=== PATIENT | female | born 1995 | race Caucasian/White ===

== ENCOUNTER 2016-09-12 18:46 | Emergency (ER) | payer BC ==
[2016-09-12] MEDS ORDERED: Sodium Chloride 0.9% 10 ML Syringe FLUSH PRN (19:07)
[2016-09-12] MEDS ORDERED: Sodium Chloride 0.9% 1,000 ML IV ONE ×2 (19:07→21:04)
[2016-09-12] MEDS ORDERED: Ketorolac 30 MG/ML SDV IVPUSH ONE (19:09)
[2016-09-12] MEDS ORDERED: Ondansetron 4 MG/2 ML SDV IVPUSH ONE (19:14)
[2016-09-12] MEDS ORDERED: Famotidine 20 MG/2 ML SDV IVPUSH ONE (19:14)
[2016-09-12] MEDS ORDERED: Pantoprazole 40 MG Vial IVPUSH ONE (19:15)
[2016-09-12] MEDS ORDERED: Iopamidol 612 MG/ML 100 ML Bottle IVPUSH ONE (19:48)
--- NOTE | 2016-09-12 19:49 | EDM.PDOC ---
ED HPI GENERAL MEDICAL PROBLEM - General Chief Complaint: Gastrointestinal Problem Stated Complaint: Severe Nausea; Vomiting Time Seen by Provider: 09/12/16 18:59 Source of Information: Reports: Patient, Family, RN, RN Notes Reviewed History Limitations: Reports: No Limitations - History of Present Illness INITIAL COMMENTS - FREE TEXT/NARRATIVE: Patient presents to the emergency room at [facility] complaining of severe nausea, vomiting, abdominal pain. The patient states her symptoms began a couple of hours ago. The patient states that her symptoms began after she ate soup from a fast food restaurant. No previous history of any abdominal problems. The patient states that she feels chilled. Patient is requesting Dilaudid for her pain. Patient denies any chest pain. Patient denies any shortness of breath. The patient denies any diarrhea. No recent abdominal surgeries. No recent abdominal injury or trauma. The patient denies any focal neurological deficits. The patient denies any fevers. Onset: Today Onset Date: 09/12/16 Onset Time: 17:00 Duration: Constant, Getting Worse Location: Reports: Abdomen Quality: Reports: Sharp, Stabbing, Throbbing Severity: Severe Improves with: Reports: None Worsens with: Reports: Eating Context: Denies: Activity, Exercise, Lifting, Sick Contact, Trauma Associated Symptoms: Reports: Nausea/Vomiting Treatments [employer]: Reports: Other (see below) (None) Middle Epigastric Pain Score (Numeric/FACES): 10 - Related Data Allergies Allergy/AdvReac Type Severity Reaction Status Date / Time No Known Allergies Allergy Verified 09/12/16 18:55 Home Meds: Home Meds . [No Known Home Meds] 09/12/16 [History] Past Medical History - Past Surgical History GI Surgical History: Reports: Cholecystectomy Female Surgical History: Reports: Breast Reduction Social & Family History - Family History Family Medical History: Noncontributory - Tobacco Use Smoking Status *Q: Current Every Day Smoker Years of Tobacco use: 6 Packs/Tins Daily: 1 - Alcohol Use Days Per Week of Alcohol Use: 0 - Recreational Drug Use Recreational Drug Use: Yes Drug Use in Last 12 Months: Yes Recreational Drug Type: Reports: Marijuana/Hashish Recreational Drug Use Frequency: Socially ED ROS GENERAL - Review of Systems Review Of Systems: See Below Constitutional: Denies: Fever, Chills, Weakness Respiratory: Denies: Shortness of Breath, Cough Cardiovascular: Denies: Chest Pain, Palpitations GI/Abdominal: Reports: Abdominal Pain, Nausea, Vomiting. Denies: Bloody Stool, Constipation, Diarrhea Skin: Reports: No Symptoms Neurological: Reports: No Symptoms ED EXAM, GI/ABD - Physical Exam Exam: See Below Exam Limited By: No Limitations General Appearance: Alert, Mild Distress, Thin Respiratory/Chest: No Respiratory Distress, Lungs Clear, Normal Breath Sounds Cardiovascular: Regular Rate, Rhythm GI/Abdominal: Hypoactive Bowel Sounds, Tenderness, Guarding, Rebound, Rigidity Extremities: Normal Inspection Neurological: Alert, Oriented Skin Exam: Warm, Dry, Intact, Normal Color, No Rash Course - Vital Signs Last Recorded V/S: Last Vital Signs Temp 35.5 C 09/12/16 18:48 Pulse 101 H 09/12/16 18:48 Resp 20 09/12/16 18:48 BP 120/85 09/12/16 18:48 Pulse Ox - Orders/Labs/Meds Orders: Active Orders 24 hr Category Date Time Status Abdomen Pelvis w Cont [CT] Stat Exams 09/12/16 19:05 Taken CARBOXY-THC BY GC/MS Stat Lab 09/12/16 20:11 Received Sodium Chloride 0.9% [Normal Saline] 1,000 ml Med 09/12/16 21:04 Active IV ONETIME Sodium Chloride 0.9% [Normal Saline] 100 ml Med 09/12/16 20:00 Active IV ASDIRECTED Sodium Chloride 0.9% [Saline Flush] Med 09/12/16 19:07 Active 10 ml FLUSH ASDIRECTED PRN Peripheral IV Insertion Adult [OM.PC] Routine Oth 09/12/16 19:07 Ordered Medication Orders Sodium Chloride (Normal Saline) 100 mls @ 3 mls/sec IV ASDIRECTED CHENTE Last Admin: 09/12/16 20:50 Dose: 3 mls/sec Sodium Chloride (Normal Saline) 1,000 mls @ 999 mls/hr IV ONETIME ONE Stop: 09/12/16 22:04 Last Admin: 09/12/16 19:55 Dose: 999 mls/hr Sodium Chloride (Saline Flush) 10 ml FLUSH ASDIRECTED PRN PRN Reason: Keep Vein Open Labs: Laboratory Tests 09/12/16 09/12/16 09/12/16 Range/Units 19:31 19:31 19:31 WBC 16.1 H (4.0-10.0) x10^3/uL RBC 4.27 (4.00-5.50) x10^6/uL Hgb 13.9 (12.0-16.0) g/dL Hct 39.7 (33.0-47.0) % MCV 93.0 (78.0-93.0) fL MCH 32.6 H (26.0-32.0) pg MCHC 35.0 (32.0-36.0) g/dL RDW Coeff of Cricket 11.6 (10.0-15.0) % Plt Count 283 (130-400) x10^3/uL Neut % (Auto) 85.9 H (50.0-80.0) % Lymph % (Auto) 9.6 L (25.0-50.0) % [place] % (Auto) 4.1 (2.0-11.0) % Eos % (Auto) 0.2 (0.0-4.0) % Baso % (Auto) 0.2 (0.2-1.2) % Sodium 141 (136-145) mmol/L Potassium 3.0 L (3.5-5.1) mmol/L Chloride 102 (98-107) mmol/L Carbon Dioxide 24 (21-32) mmol/L BUN 10 (7-18) mg/dL Creatinine 0.9 (0.55-1.02) mg/dL Est Cr Clr Drug Dosing 73.72 mL/min Estimated GFR (MDRD) > 60 Glucose 152 H (74-106) mg/dL Lactic Acid 3.3 H (0.4-2.0) mmol/L Calcium 9.6 (8.5-10.1) mg/dL Corrected Calcium 9.28 (8.5-10.1) mg/dL Total Bilirubin 0.5 (0.2-1.0) mg/dL AST 17 (15-37) U/L ALT 23 (14-59) U/L Alkaline Phosphatase 67 (46-116) U/L C-Reactive Protein < 0.2 (<=0.9) mg/dL Total Protein 8.0 (6.4-8.2) g/dL Albumin 4.4 (3.4-5.0) g/dL Globulin 3.6 Albumin/Globulin Ratio 1.22 Amylase 54 (25-115) U/L Lipase 99 (73-393) U/L Urine Color (YELLOW) Urine Appearance (CLEAR) Urine pH (5.0-8.0) Ur Specific Oscar Urine Protein (NEGATIVE) mg/dL Urine Glucose (UA) (NEGATIVE) mg/dL Urine Ketones (NEGATIVE) mg/dL Urine Occult Blood (NEGATIVE) Urine Nitrite (NEGATIVE) Urine Bilirubin (NEGATIVE) Urine Urobilinogen (0.2) EU/dL Ur Leukocyte Esterase (NEGATIVE) Urine RBC (NOT SEEN) /HPF Urine WBC (NOT SEEN) /HPF Ur Squamous Epith Cells (NEGATIVE) /HPF Urine Bacteria (NEGATIVE) /HPF Urine Mucus (NEGATIVE) /LPF Urine HCG, Qual (NEGATIVE) Urine Opiates Screen (NEGATIVE) Ur Buprenorphine Scrn (NEGATIVE) Ur Oxycodone Screen (NEGATIVE) Urine Methadone Screen (NEGATIVE) Ur Barbiturates Screen (NEGATIVE) Ur Tricyclics Screen (NEGATIVE) Ur Amphetamine Screen (NEGATIVE) U Methamphetamines Scrn (NEGATIVE) Urine MDMA Screen (NEGATIVE) U Benzodiazepines Scrn (NEGATIVE) U Cocaine Metab Screen (NEGATIVE) U Marijuana (THC) Screen (NEGATIVE) 09/12/16 09/12/16 09/12/16 Range/Units 20:11 20:11 20:17 WBC (4.0-10.0) x10^3/uL RBC (4.00-5.50) x10^6/uL Hgb (12.0-16.0) g/dL Hct (33.0-47.0) % MCV (78.0-93.0) fL MCH (26.0-32.0) pg MCHC (32.0-36.0) g/dL RDW Coeff of Cricket (10.0-15.0) % Plt Count (130-400) x10^3/uL Neut % (Auto) (50.0-80.0) % Lymph % (Auto) (25.0-50.0) % [place] % (Auto) (2.0-11.0) % Eos % (Auto) (0.0-4.0) % Baso % (Auto) (0.2-1.2) % Sodium (136-145) mmol/L Potassium (3.5-5.1) mmol/L Chloride (98-107) mmol/L Carbon Dioxide (21-32) mmol/L BUN (7-18) mg/dL Creatinine (0.55-1.02) mg/dL Est Cr Clr Drug Dosing mL/min Estimated GFR (MDRD) Glucose (74-106) mg/dL Lactic Acid (0.4-2.0) mmol/L Calcium (8.5-10.1) mg/dL Corrected Calcium (8.5-10.1) mg/dL Total Bilirubin (0.2-1.0) mg/dL AST (15-37) U/L ALT (14-59) U/L Alkaline Phosphatase (46-116) U/L C-Reactive Protein (<=0.9) mg/dL Total Protein (6.4-8.2) g/dL Albumin (3.4-5.0) g/dL Globulin Albumin/Globulin Ratio Amylase (25-115) U/L Lipase (73-393) U/L Urine Color Yellow (YELLOW) Urine Appearance Slightly cloudy H (CLEAR) Urine pH 8.5 H (5.0-8.0) Ur Specific Oscar 1.020 Urine Protein Trace H (NEGATIVE) mg/dL Urine Glucose (UA) Negative (NEGATIVE) mg/dL Urine Ketones 80 H (NEGATIVE) mg/dL Urine Occult Blood Negative (NEGATIVE) Urine Nitrite Negative (NEGATIVE) Urine Bilirubin Negative (NEGATIVE) Urine Urobilinogen 0.2 (0.2) EU/dL Ur Leukocyte Esterase Negative (NEGATIVE) Urine RBC 0-5 (NOT SEEN) /HPF Urine WBC 0-5 (NOT SEEN) /HPF Ur Squamous Epith Cells Many H (NEGATIVE) /HPF Urine Bacteria Not seen (NEGATIVE) /HPF Urine Mucus Not seen (NEGATIVE) /LPF Urine HCG, Qual Negative (NEGATIVE) Urine Opiates Screen Negative (NEGATIVE) Ur Buprenorphine Scrn Negative (NEGATIVE) Ur Oxycodone Screen Negative (NEGATIVE) Urine Methadone Screen Negative (NEGATIVE) Ur Barbiturates Screen Negative (NEGATIVE) Ur Tricyclics Screen Negative (NEGATIVE) Ur Amphetamine Screen Negative (NEGATIVE) U Methamphetamines Scrn Negative (NEGATIVE) Urine MDMA Screen Negative (NEGATIVE) U Benzodiazepines Scrn Negative (NEGATIVE) U Cocaine Metab Screen Negative (NEGATIVE) U Marijuana (THC) Screen Positive H (NEGATIVE) Meds: Medications Generic Name Dose Route Start Last Admin Trade Name Freq PRN Reason Stop Dose Admin Sodium Chloride 100 mls @ 3 mls/sec 09/12/16 20:00 09/12/16 20:50 Normal Saline IV 3 mls/sec ASDIRECTED CHENTE Administration Sodium Chloride 1,000 mls @ 999 mls/hr 09/12/16 21:04 09/12/16 19:55 Normal Saline IV 09/12/16 22:04 999 mls/hr ONETIME ONE Administration Sodium Chloride 10 ml 09/12/16 19:07 Saline Flush FLUSH ASDIRECTED PRN Keep Vein Open Discontinued Medications Generic Name Dose Route Start Last Admin Trade Name Freq PRN Reason Stop Dose Admin Chlorpromazine HCl 50 mg 09/12/16 20:37 Thorazine IM 09/12/16 20:38 ONETIME ONE Famotidine 20 mg 09/12/16 19:14 09/12/16 19:44 Pepcid IVPUSH 09/12/16 19:15 20 mg ONETIME ONE Administration Sodium Chloride 1,000 mls @ 999 mls/hr 09/12/16 19:07 09/12/16 19:20 Normal Saline IV 09/12/16 20:07 999 mls/hr ONETIME ONE Administration Iopamidol 100 ml 09/12/16 19:48 09/12/16 20:45 Isovue-300 (61%) IVPUSH 09/12/16 19:49 100 ml ONETIME ONE Administration Ketorolac Tromethamine 30 mg 09/12/16 19:09 09/12/16 19:38 Toradol IVPUSH 09/12/16 19:10 30 mg ONETIME ONE Administration Nitrofurantoin Macrocrystals 100 mg 09/12/16 21:14 Macrodantin PO 09/12/16 21:15 ONETIME ONE Ondansetron HCl 4 mg 09/12/16 19:14 09/12/16 19:30 Zofran IVPUSH 09/12/16 19:15 4 mg ONETIME ONE Administration Pantoprazole Sodium 40 mg 09/12/16 19:15 09/12/16 19:34 Protonix Iv IVPUSH 09/12/16 19:16 40 mg ONETIME ONE Administration - Radiology Interpretation Free Text/Narrative:: Awaiting CT Abd/Pelvis results, patient no longer wants to wait and wishes to go home. Advised we will call when results are available Departure - Departure Time of Disposition: 21:56 Disposition: Home, Self-Care 01 Condition: good Clinical Impression: Chronic epigastric pain - Discharge Information Instructions: Abdominal Pain, Adult, [id number] Referrals: PCP,None [Primary Care Provider] - Forms: ED Department Discharge Additional Instructions: 1. Stay well hydrated and rest 2. Avoid greasy/fatty foods; eat a bland diet 3. Avoid carbonated beverages 4. Make an appointment to see your Primary care provider this week for a follow up - Problem List Review Problem List Initiated/Reviewed/Updated: Yes - My Orders Last 24 Hours: My Active Orders 09/12/16 19:05 Abdomen Pelvis w Cont [CT] Stat 09/12/16 19:07 Sodium Chloride 0.9% [Saline Flush] 10 ml FLUSH ASDIRECTED PRN Peripheral IV Insertion Adult [OM.PC] Routine 09/12/16 20:00 Sodium Chloride 0.9% [Normal Saline] 100 ml IV ASDIRECTED 09/12/16 20:11 CARBOXY-THC BY GC/MS Stat 09/12/16 21:04 Sodium Chloride 0.9% [Normal Saline] 1,000 ml IV ONETIME - Assessment/Plan Last 24 Hours: My Active Orders 09/12/16 19:05 Abdomen Pelvis w Cont [CT] Stat 09/12/16 19:07 Sodium Chloride 0.9% [Saline Flush] 10 ml FLUSH ASDIRECTED PRN Peripheral IV Insertion Adult [OM.PC] Routine 09/12/16 20:00 Sodium Chloride 0.9% [Normal Saline] 100 ml IV ASDIRECTED 09/12/16 20:11 CARBOXY-THC BY GC/MS Stat 09/12/16 21:04 Sodium Chloride 0.9% [Normal Saline] 1,000 ml IV ONETIME
[2016-09-12 19:58] LABS: CHLORIDE,CL 102 mmol/L (98-107); SODIUM,NA 141 mmol/L (136-145)
[2016-09-12] MEDS ORDERED: Sodium Chloride 0.9% 100 ML IV SCH (20:00)
[2016-09-12] MEDS ORDERED: Nitrofurantoin Macrocrystal 50 MG Cap PO ONE (21:14)
[2016-09-12 22:49] VITALS: BP 106/61
== END 2016-09-12 22:11 | disposition home or self-care (01) ==
LOC: VM.ED 18:46
DX: R10.13 Epigastric pain (principal); G89.29 Other chronic pain; Z79.899 Other long term (current) drug therapy; F17.210 Nicotine dependence, cigarettes, uncomplicated
CPT/HCPCS: 36415; 74177; 80053; 80305; 80349; 81001; 81025; 82150; 83605; 83690; 85025; 86140; 96361; 96372; 96374; 96375; 99284; C9113; J1885; J2405; J3230; J7030; J7050; Q9967; S0028